=== PATIENT | male | born 1970 | race Caucasian/White ===

== ENCOUNTER → 2018-10-31 | Outpatient (CLI) | payer OTHER ==
[2015-06-21 01:21] VITALS: BP 124/65
[~2018-10-31] MED LIST: LISI10TA2 PO
--- NOTE | 2018-10-31 10:59 | KCIC ---
Examination: ABDOMEN LTD History: Right upper quadrant pain Comparison/Correlation: None Findings: Fatty infiltration of the liver is present. Relative hypoechogenicity at the gallbladder fossa which probably represents sparing is noted. Liver length of 19.3 cm noted. Common bile that measures 0.4 cm diameter. Portal venous flow is normal. Gallbladder wall thickness is 0.2 cm. There is a 0.2 cm diameter adherent calculus or possibly polyp at the anterior gallbladder wall. Right kidney measures 12 cm x 5.7 cm x 5.8 cm. Right renal cyst measuring up to 2.6 cm diameter is present. Common bile duct measures 0.4 cm diameter. Inferior vena cava and aorta are not well visualized. The proximal aspect is unremarkable. Distal pancreas is obscured by bowel gas. Impression: Fatty infiltration of liver. Adherent calculus or possibly echogenic polyp within the gallbladder. No biliary dilatation or inflammatory findings of the gallbladder. Electronically signed by: Jl Caba MD (10/31/2018 10:56 AM) [id number]
== END | disposition home or self-care (01) ==
LOC: KCIC US 09:23
PROVIDERS: ATTEND Family Medicine
DX: K76.0 Fatty (change of) liver, not elsewhere classified (principal); N28.1 Cyst of kidney, acquired
CPT/HCPCS: 76705